=== PATIENT | female | born 1975 | race Caucasian/White ===

== ENCOUNTER 2016-10-08 09:26 | Emergency (ER) | payer MEDICARE, OTHER ==
[2016-10-08 10:06] VITALS: BP 112/71
[2016-10-08] MEDS ORDERED: ALBUTEROL SULFATE 2.5 MG/0.5 ML VIAL.NEB IH ONE ×2 (11:41→12:06)
--- OUTSIDE RECORDS SUMMARY | 2016-10-08 11:49 | XMS REPORT | Continuity of Care Document ---
:1975 Author Organization [facility] ([facility]) Address [address] [place] [address] Phone [phone] Care Team Providers Name Role Phone Severino Rodriguez Primary Care Provider [phone] Source Comments This disclosure is being made pursuant to the Care Everywhere program, applicable federal and state laws, and may not contain all informaitonavailable regarding this patient.[facility] ([facility]) Active Allergies and Adverse Reactions Allergen Noted Date Severity Reactions Comments Fexofenadine-Pseudoephedrine 10/16/2011 OTHER Facial swelling Other Agent 11/25/2010 OTHER Surgical steel causes redness, burning, and infection Tape- redness Current Medications Prescription Sig. Disp. Refills Start Date End Date Status artificial tears instill 1-2 Drops 15 mL 0 10/04/2012 Active (TEARS NATURALE II) onto both eyes 6 ophthalmic solution times daily as needed (While ventilated). Indications: DRY EYE multivitamin with Take 1 Tab by 30 Tab 0 10/04/2012 Active zinc (SOURCECF) mouth daily. 200-15 mcg-mg Indications: chewable tablet VITAMIN DEFICIENCY acetaminophen 325 mg Take 1 Tab by 60 Tab 11 11/01/2012 Active tablet mouth 2 times daily. Indications: PAIN ranitidine 150 mg Take 0.5 tablets 30 tablet 11 02/01/2016 Active tablet (75 mg total) by mouth 2 times daily. montelukast Take 1 tablet (10 90 tablet 4 02/02/2016 Active (SINGULAIR) 10 mg mg total) by tablet mouth every evening. metoPROLol tartrate Take 0.5 tablets 60 tablet 11 02/02/2016 Active 50 mg tablet (25 mg total) by mouth 2 times daily. gabapentin 300 mg Take 2 capsules 240 capsule 11 02/02/2016 Active capsule (600 mg total) by mouth 4 times daily. citalopram 20 mg Take 1 tablet (20 90 tablet 4 02/02/2016 Active tablet mg total) by mouth daily. potassium chloride 10 Take 1 tablet (10 120 tablet 02/04/2016 Active mEq XR tablet mEq total) by mouth 2 times daily. folic acid 1 mg Take 1 tablet (1 30 tablet 5 02/04/2016 Active tablet mg total) by mouth daily. amitriptyline 25 mg Take one tablet 30 tablet 11 02/04/2016 Active tablet by mouth every evening with meal (not at bedtime). albuterol 90 Use 2 Puffs by 6.7 g 11 02/04/2016 Active mcg/Actuation inhaler inhalation every 4 hours as needed. amoxicillin-clavulana Take 1 tablet by 42 tablet 0 05/30/2016 Active te 875-125 mg per mouth 2 times tablet daily. SUMAtriptan 100 mg Take 1 tablet 9 tablet 06/20/2016 Active tablet (100 mg total) by mouth daily as needed. May repeat in 2 hours if needed. Active Problems Patient Care Coordination Note GOALS OF CARE AND TREATMENT PREFERENCES Diagnosis: respiratory failure in the setting of neuromuscular weakness of unclear etiology Prognosis: guarded Goal(s) of Care: cure and determine what is wrong Is the patient an inpatient? Yes. How did the team arrive at the current code status? Speaking with her father, who is next of kin Most important goal of care: Finding out what is wrong Patient able to make own decisions? 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 H/O: hysterectomy 09/20/2012 H/O right knee surgery 09/20/2012 Hx of appendectomy 09/20/2012 Altered mental status 09/20/2012 H/O tracheostomy 09/18/2012 Axonal sensorimotor neuropathy 09/01/2012 H/O alcohol abuse 09/01/2012 Anemia 09/01/2012 Weakness of both legs 10/24/2011 Neuropathy 10/17/2011 Resolved Problems Problem Noted Date Resolved Date UTI (lower urinary tract infection) 09/21/2012 10/03/2012 Dysphagia 09/18/2012 10/03/2012 Gastrostomy tube dependent 09/09/2012 10/04/2012 Diaphragm paralysis 09/02/2012 10/03/2012 Atelectasis 09/02/2012 10/03/2012 H/O acute respiratory failure 09/01/2012 09/23/2012 Hypokalemia 09/01/2012 09/12/2012 Encephalopathy acute 09/01/2012 10/03/2012 Alcoholic hepatitis 09/01/2012 10/03/2012 Protein calorie malnutrition 09/01/2012 10/03/2012 Cardiac arrest 09/01/2012 10/03/2012 Most Recent Encounters Date Type Specialty Providers Description 08/31/2016 Office Visit Otolaryngology Gerard Vance, Subj: Upcoming Appt Reminder Celeste Valverde PA-C 08/31/2016 Office Visit Otolaryngology Gerard Vance, Subj: Upcoming Appt Reminder 08/03/2016 Office Visit Otolaryngology Gerard Vance, Subj: Upcoming Appt Reminder Celeste Valverde PA-C Immunizations Name Dates Previously Given Next Due Influenza, PF 09/25/2012 Pneumococcal Polysaccharide, PPSV23 (Pneumovax 23) 09/16/2012 Social History Tobacco Use Types Packs/Day Years Used Date Current Every Day Smoker Cigarettes 0.5 20 Smokeless Tobacco: Never Used Tobacco Cessation:Ready to Quit: No; Counseling Given: Yes Comments: Alcohol Use Drinks/Week oz/Week Comments No 12 Cans of beer 6.0 Last Filed Vital Signs Vital Sign Reading Time Taken Blood Pressure 104/75 05/30/2016 11:14 AM CDT Pulse 89 05/30/2016 11:14 AM CDT Temperature 35.9 C (96.6 F) 05/30/2016 11:14 AM CDT Respiratory Rate 16 02/01/2016 11:38 AM CDT Height 1.778 m (5' 10") 02/01/2016 11:38 AM CDT Weight 81.3 kg (179 lb 3.7 oz) 05/30/2016 11:14 AM CDT Body Mass Index 25.72 05/30/2016 11:14 AM CDT Oxygen Saturation 97% 07/15/2014 4:01 PM HEAD NURSE Plan of Care Date Type Specialty Providers Description 11/01/2016 Appointment Radiology Subj: Appointment Rescheduled 11/01/2016 Appointment Otolaryngology Gerard Vance MD [address] [place] [address] [phone] (Fax) Subj: Appointment Heladio Hanks MD [address] [place] [address] [phone] (Fax) Rescheduled 11/01/2016 Appointment Otolaryngology Gerard Vance MD [address] [place] [address] [phone] (Fax) Subj: Appointment Celeste Valverde PA-C [address] [place] [address] [phone] (Fax) Rescheduled Health Maintenance Due Date Last Done Comments Hepatitis B Vaccine (1 of 3 - Primary Series) 1975 Tdap Vaccine 1987 MMR Vaccine 1994 Td Vaccine 1994 Cervical Cancer Screening 2006 Mammogram 2016 Influenza Vaccine: Seasonal (#1) 03/27/2016 09/25/2012 Lipid Disorder Screening 06/30/2019 06/30/2014 Pneumococcal Vaccine Completed 09/16/2012 Results from Last 3 Months Not on file
--- NOTE | 2016-10-08 11:50 | ERNOTE ---
Date of Service: 10/08/16 Time Seen by Provider: 10/08/16 11:25 Stated Complaint: SINUS Presenting Symptoms:: cough, sore throat, runny nose, fever Source: patient Exam Limitations: no limitations Immunizations: IMMUNIZATION HX Immunizations Up to Date Yes History of Influenza Vaccine No Hx Pneumococcal Vaccination No Allergies/Adverse Reactions: Allergies adhesive tape Allergy (Verified 10/08/16 10:06) fluticasone propionate [From Flonase] Allergy (Verified 10/08/16 10:06) latex Allergy (Verified 10/08/16 10:06) Penicillins Allergy (Verified 10/08/16 10:06) Home Medications: HOME MEDICATIONS Amitriptyline HCl [Elavil] 25 mg PO HS 06/05/16 [Last Taken Unknown] Citalopram Hydrobromide [Celexa] 20 mg PO DAILY 06/05/16 [Last Taken Unknown] Folic Acid 1 mg PO DAILY 06/05/16 [Last Taken Unknown] Gabapentin 600 mg PO QID 06/05/16 [Last Taken Unknown] Metoprolol Tartrate [Lopressor] 25 mg PO BID 06/05/16 [Last Taken Unknown] Montelukast Sodium [Singulair] 10 mg PO DAILY 06/05/16 [Last Taken Unknown] Ondansetron [Zofran Odt] 8 mg PO Q8H PRN #20 tab 06/05/16 [Last Taken Unknown] Potassium Chloride [Klor-Con M10] 10 meq PO BID 06/05/16 [Last Taken Unknown] Ranitidine HCl [Zantac] 75 mg PO BID 06/05/16 [Last Taken Unknown] Naproxen [Naprosyn] 500 mg PO BID PRN #60 tab 07/19/16 [Last Taken Unknown] Albuterol Sulfate [Ventolin Hfa] 2 puff IH Q4H PRN #1 inhaler 10/08/16 [Last Taken Unknown] Doxycycline Monohydrate 100 mg PO BID #20 tablet 10/08/16 [Last Taken Unknown] - History of Present Ilness Narrative: Pt. comes in with c/o cough, chest congestion, sore throat, sinus pain, fever, and SOB for a week. Pt. denies any prehospital treatment, NVD, chest pain or alleviating factors. Pt. states that night and deep breathing exacerbates the symptoms. 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 Review of Systems - Review of Systems Constitutional: Present: fever, chills, weakness, fatigue, malaise EYE: Present: no symptoms reported ENT: Present: ear pain, nose pain, nose congestion, nasal drainage, sore throat Respiratory: Present: shortness of breath, cough, wheezing Cardiology: Present: no symptoms reported. Absent: chest pain, palpitations, edema Gastrointestinal/Abdominal: Present: no symptoms reported. Absent: nausea, vomiting, diarrhea Genitourinary: Present: no symptoms reported. Absent: frequency, decreased urinary output Musculoskeletal: Present: back pain - B upper lateral back Skin: Present: no symptoms reported. Absent: rash, change in color Neurological: Present: no symptoms reported. Absent: headache, dizziness/light- headedness, numbness, tingling All Other Systems: All systems neg except as marked - Patient's Past Medical History Patient History - Medical: Anxiety, Depression, GERD, Hypothyroidism, Other - guillian [place] Patient History - Cardiac/Respiratory: Hypertension Patient History - Cancer: Cervical Patient History - Surgical Procedures: Appendectomy, Hysterectomy, Other Patient History - Other: None - Social History Living Situations: home Abuse History: No History of abuse Psych History: Hx of Anxiety, Hx of Depression Alcohol Use: none Drug Use: none - Immunizations Immunizations Up to Date: Yes Hx Pneumococcal Vaccination: No History of Influenza Vaccine: No Physical Exam - Physical Exam General Appearance: Present: wd/wn, alert, no apparent distress Eye Exam: Normal inspection: bilateral, PERRL: bilateral, EOMI: bilateral Ears, Nose, Throat: Present: hearing grossly normal, nasal congestion, sinus pain/drainage - maxillary and frontal, normal pharynx, pharyngeal erythema, tonsillar exudate - white. Absent: abnormal TM (R), abnormal TM (L) Neck: Present: normal inspection, nontender. Absent: lymphadenopathy (R), lymphadenopathy (L) Respiratory: Present: no respiratory distress, no accessory muscle use, chest nontender, decreased breath sounds - bases, wheezing - BUL exp Cardiovascular/Chest: Present: regular rate, rhythm, no murmur, normal peripheral pulses Gastrointestinal/Abdominal: Present: normal bowel sounds, nontender, nondistended, soft, no organomegaly Back Exam: Present: normal range of motion, no CVA tenderness, no vertebral tenderness, other - BU post IC 3-6 Extremity Exam: Present: normal inspection, non-tender, no edema, normal range of motion Neurological Exam: Present: alert, oriented, normal mood/affect, no motor/ sensory deficits Skin Exam: Present: warm/dry, pallor ED Progress - Results and Orders Patient's Lab Results:: I have reviewed the patient's lab results. - Vital Signs Patient's Vital Signs:: I have reviewed the patient's vital signs. Vital Signs: Vital Signs 10/08/16 10:03 Temperature 35.6 C L Pulse Rate 88 Respiratory 12 Rate Blood Pressure 112/71 O2 Sat by Pulse 99 Oximetry - X-Ray X-Ray #1 X-Ray: chest Interpretation: Interp. by me X-ray Comments: no consolidation or infiltrate - Progress/Reassessment Chief Complaint: Upper Respiratory Symptoms Departure - Departure Clinical Impression: Bronchitis Sinusitis, acute Qualifiers: Sinusitis location: maxillary Recurrence: non-recurrent Qualified Code(s): J01.00 - Acute maxillary sinusitis, unspecified Disposition: Home self-care Condition: Good Instructions: Acute Bronchitis, Sinusitis, Adult, [id number] Additional Instructions: Please follow up with primary provider in 2-3 days and rest. Increase fluid intake. Referrals: Tacho Kim DO [Primary Care Provider] - Prescriptions: Albuterol Sulfate [Ventolin Hfa] 2 puff IH Q4H PRN #1 inhaler PRN Reason: Shortness Of Breath Doxycycline Monohydrate 100 mg PO BID #20 tablet
== END 2016-10-08 12:51 | disposition home or self-care (01) ==
LOC: ER 09:26
DX: J20.9 Acute bronchitis, unspecified (principal); J01.00 Acute maxillary sinusitis, unspecified

== ENCOUNTER 2016-12-05 09:55 | Emergency (ER) | payer MEDICARE, OTHER ==
[2016-12-05 10:14] VITALS: BP 120/85
--- OUTSIDE RECORDS SUMMARY | 2016-12-05 10:36 | XMS REPORT | Continuity of Care Document ---
:1975 Author Organization [facility] ([facility]) Address [address] [place] [address] Phone [phone] Care Team Providers Name Role Phone [phone], Need To Check Primary Care Provider Unavailable Source Comments This disclosure is being made pursuant to the Care Everywhere program, applicable federal and state laws, and may not contain all informaitonavailable regarding this patient.[facility] ([facility]) Active Allergies and Adverse Reactions Allergen Noted [...] 10 Take 1 tablet (10 120 tablet 11 02/04/2016 Active mEq XR tablet mEq total) by mouth 2 times daily. amitriptyline 25 mg Take one tablet [...] 100 mg Take 1 tablet 9 tablet 11 06/20/2016 Active tablet (100 mg total) by mouth daily as needed. May repeat in 2 hours if needed. folic acid 1 mg Take 1 tablet (1 90 tablet 11 10/17/2016 Active tablet mg total) by mouth daily. Active Problems Patient Care Coordination Note GOALS [...] Recent Encounters Date Type Specialty Providers Description 11/29/2016 Office Visit Otolaryngology Gerard Vance Subj: Appointment MD Sarah Rescheduled Celeste Valverde PA-C 11/29/2016 Office Visit Otolaryngology Gerard Vance Subj: Appointment MD Sarah Rescheduled Heladio Hanks MD 11/01/2016 Office Visit Otolaryngology Gerard Vance Subj: Upcoming Appt MD Sarah Reminder Celeste Valverde PA-C 11/01/2016 Office Visit Otolaryngology Gerard Vance Subj: Upcoming Samira Smith MD Reminder Heladio Hanks MD 10/17/2016 Refill General Internal Severino Rodriguez Dx: Folate Medicine deficiency (Primary Dx) Immunizations Name Dates Previously Given Next Due [...] CDT Oxygen Saturation 97% 07/15/2014 4:01 PM [employer] Plan of Care Date Type Specialty Providers Description 12/13/2016 Appointment Radiology Subj: Appointment Rescheduled 12/13/2016 Appointment Otolaryngology Gerard Vance MD [address] [place] [address] [phone] (Fax) Subj: Appointment Heladio Hanks MD [address] [place] [address] [phone] (Fax) Rescheduled 12/13/2016 Appointment Otolaryngology Gerard Vance MD [address] [place] [address] [phone] (Fax) Subj: Appointment Celeste Valverde PA-C [address] [place] [address] [phone] (Fax) Rescheduled Health Maintenance Due Date Last Done Comments Hepatitis B Vaccine (1 of 3 - Primary Series) 1975 Tdap Vaccine 1987 MMR Vaccine 1994 Td Vaccine 1994 Cervical Cancer Screening 2006 Mammogram 2016 Influenza Vaccine: Seasonal (Season Ended) 2017 09/25/2012 Lipid Disorder Screening 06/30/2019 06/30/2014 Pneumococcal Vaccine Completed 09/16/2012 Results from Last 3 Months Not on file
--- NOTE | 2016-12-05 11:24 | ERNOTE ---
Lower Extremity HPI - Narrative Date of Service: 12/05/16 - General Lower Extremities Pain: foot: left Time Seen by Provider: 12/05/16 10:26 Source: patient Exam Limitations: no limitations - Immun/Allergies/Home Medications Immunizations: IMMUNIZATION HX Immunizations Up to Date Yes History of Influenza Vaccine No Hx Pneumococcal Vaccination No Allergies/Adverse Reactions: Allergies Allergy/AdvReac Type Severity Reaction Status Date / Time adhesive tape Allergy Verified 10/08/16 10:06 fluticasone propionate Allergy Verified 10/08/16 10:06 [From Flonase] latex Allergy Verified 10/08/16 10:06 Penicillins Allergy Verified 10/08/16 10:06 Home Medications: HOME MEDICATIONS Amitriptyline HCl [Elavil] 25 mg PO HS 06/05/16 [Last Taken Unknown] Citalopram Hydrobromide [Celexa] 20 mg PO DAILY 06/05/16 [Last Taken Unknown] Folic Acid 1 mg PO DAILY 06/05/16 [Last Taken Unknown] Gabapentin 600 mg PO QID 06/05/16 [Last Taken Unknown] Metoprolol Tartrate [Lopressor] 25 mg PO BID 06/05/16 [Last Taken Unknown] Montelukast Sodium [Singulair] 10 mg PO DAILY 06/05/16 [Last Taken Unknown] Ondansetron [Zofran Odt] 8 mg PO Q8H PRN #20 tab 06/05/16 [Last Taken Unknown] Potassium Chloride [Klor-Con M10] 10 meq PO BID 06/05/16 [Last Taken Unknown] Ranitidine HCl [Zantac] 75 mg PO BID 06/05/16 [Last Taken Unknown] Albuterol Sulfate [Ventolin Hfa] 2 puff IH Q4H PRN #1 inhaler 10/08/16 [Last Taken Unknown] Naproxen [Naprosyn] 500 mg PO BID PRN #60 tab 12/05/16 [Last Taken Unknown] - History of Present Illness Narrative: Pt. comes in with c/o L lateral foot pain for three days. Pt. denies any specific injury. Pt. denies any SOB, CP, NVD, numbness or tingling. Pt. has gullian barre syndrome and has had R foot pain previously but not left. Review of Systems - Review of Systems Constitutional: Present: no symptoms reported. Absent: recent illness, fever, chills, weakness, fatigue, malaise EYE: Present: no symptoms reported ENT: Present: no symptoms reported Respiratory: Present: no symptoms reported. Absent: shortness of breath, cough , wheezing Cardiology: Present: no symptoms reported. Absent: chest pain, palpitations, edema Gastrointestinal/Abdominal: Present: no symptoms reported. Absent: nausea, vomiting, diarrhea Genitourinary: Present: no symptoms reported Musculoskeletal: Present: joint pain - L lateral foot, joint swelling - L lateral foot Skin: Present: change in color - bruising L lateral foot Neurological: Present: no symptoms reported. Absent: headache, dizziness/light- headedness, numbness, tingling All Other Systems: All systems neg except as marked - Patient's Past Medical History Patient History - Medical: Anxiety, Depression, GERD, Hypothyroidism, Other - gullian barre Patient History - Cardiac/Respiratory: Hypertension Patient History - Cancer: Breast, Cervical Patient History - Surgical Procedures: Appendectomy, Hysterectomy, Other Patient History - Other: None - Family History Mother Family History - Medical: History Unknown Father Family History - Medical: No pertinent hx - Social History Living Situations: home Abuse History: No History of abuse Psych History: Hx of Anxiety, Hx of Depression Alcohol Use: none Drug Use: none - Immunizations Immunizations Up to Date: Yes Hx Pneumococcal Vaccination: No History of Influenza Vaccine: No Physical Exam - Physical Exam General Appearance: Present: wd/wn, alert, no apparent distress Eye Exam: Normal inspection: bilateral, PERRL: bilateral, EOMI: bilateral Ears, Nose, Throat: Present: normal ENT inspection, normal pharynx Neck: Present: normal inspection, nontender. 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 - Vital Signs Patient's Vital Signs:: I have reviewed the patient's vital signs. Vital Signs: Vital Signs 12/05/16 10:07 Temperature 36.8 C Pulse Rate 87 Respiratory 16 Rate Blood Pressure 120/85 O2 Sat by Pulse 97 Oximetry - X-Ray X-Ray #1 X-Ray: foot Interpretation: Reviewed by me X-ray Comments: No acute fracture - Progress/Reassessment Chief Complaint: Foot Injury/Pain Departure Clinical Impression: Guillain-Harrison disease Fallen arch Qualifiers: Laterality: unspecified laterality Qualified Code(s): M21.40 - Flat foot [pes planus] (acquired), unspecified foot - Departure Disposition: Home self-care Condition: Good Additional Instructions: Please follow up with operations specialists at [address] [place], [place] [phone]. Keep foot elevated. Wear shoes whenever walking, use Ice and NSAIDS for swelling and pain. Referrals: Tacho Kim DO [Primary Care Provider] - Prescriptions: Naproxen [Naprosyn] 500 mg PO BID PRN #60 tab PRN Reason: Pain
== END 2016-12-05 11:40 | disposition home or self-care (01) ==
LOC: ER 09:55
DX: G61.0 Guillain-Barre syndrome (principal); M21.40 Flat foot [pes planus] (acquired), unspecified foot; Z85.3 Personal history of malignant neoplasm of breast; Z85.41 Personal history of malignant neoplasm of cervix uteri; K21.9 Gastro-esophageal reflux disease without esophagitis; I10 Essential (primary) hypertension; F41.8 Other specified anxiety disorders